=== PATIENT | male | born 1965 | race Caucasian/White ===

== ENCOUNTER 2018-11-01 05:57 | Day surgery (SDC) | payer OTHER ==
[2018-11-01] MEDS ORDERED: DIPRIVAN 200 MG/20 ML IV ONE (05:58)
[2018-11-01] MEDS ORDERED: Ketamine HCl 50 MG/ML IV ONE (05:58)
[2018-11-01] MEDS ORDERED: Lactated Ringers 1,000 ML IV SCH (06:30)
--- NOTE | 2018-11-01 08:34 | OP ---
SURGERY DATE/TIME: 11/01/2018 0741 PREOPERATIVE DIAGNOSIS: Rectal bleeding. POSTOPERATIVE DIAGNOSIS: Normal colon. PROCEDURE: Colonoscopy. SURGEON: Dr. Tiwari. ANESTHESIA: MAC. Medications given by anesthesia department. HISTORY: The patient is a 53 year-old white male patient reporting rectal bleeding over the past year off and on. The patient has never had a colon examination previously. He was suggested to have colonoscopy and appraised of the risks of the procedure including the risk of perforation, phlebitis, untoward reaction to medication, bleeding and missed lesions. The patient verbalized his understanding and desired to have the procedure performed. DESCRIPTION OF PROCEDURE: The patient was given the medications by the anesthesia department. He had continuous pulse oximetry, ECG monitoring, intermittent blood pressure monitoring and tidal CO2 monitoring during the examination. He was placed in the left lateral decubitus position. A digital rectal examination was performed and revealed normal anal sphincter tone, no masses and normal prostate. The flexible Olympus pediatric colonoscope was used to intubate the rectum. A view of the colon was developed sequentially to the cecum including a short distance into the terminal ileum. Upon insertion and withdrawal, including a retroflex view in the rectum, no mucosal lesions were encountered. The scope was removed from the patient who tolerated the procedure well and was sent back to OP recovery in good condition. The prep was noted to be good.
[2018-11-01 08:59] VITALS: BP 113/81; PULSE 69; O2SAT 98
== END 2018-11-01 09:15 | disposition home or self-care (01) ==
LOC: SDC 05:57
PROVIDERS: ATTEND Family Medicine
DX: K62.5 Hemorrhage of anus and rectum (principal)
CPT/HCPCS: J2704

== ENCOUNTER 2019-06-07 00:19 | Emergency (ER) | payer SELFPAY ==
[2019-06-07 00:34] VITALS: BP 103/63
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
[2019-06-07 01:07] VITALS: PULSE 86; O2SAT 98
== END 2019-06-07 01:07 | disposition home or self-care (01) ==
LOC: ED 00:19
DX: F10.920 Alcohol use, unspecified with intoxication, uncomplicated (principal); V89.2XXA Person injured in unspecified motor-vehicle accident, traffic, initial encounter
CPT/HCPCS: 99283

== ENCOUNTER 2020-03-21 16:41 | Emergency (ER) | payer BC ==
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
[2020-03-21 18:32] LABS: Amphetamine,Urine POSITIVE (NEGATIVE); Barbiturate,Urine NEGATIVE (NEGATIVE); Benzodiazepine,Urine NEGATIVE (NEGATIVE); Cocaine,Urine NEGATIVE (NEGATIVE); Methadone,Urine NEGATIVE (NEGATIVE); Opiate,Urine NEGATIVE (NEGATIVE); PCP,Urine NEGATIVE (NEGATIVE); THC,Urine POSITIVE (NEGATIVE)
[2020-03-22 01:48] VITALS: BP 136/88; PULSE 80; O2SAT 98
== END 2020-03-22 01:30 | disposition home or self-care (01) ==
LOC: ED 16:41
DX: R45.851 Suicidal ideations (principal); F10.129 Alcohol abuse with intoxication, unspecified; F15.90 Other stimulant use, unspecified, uncomplicated; F12.929 Cannabis use, unspecified with intoxication, unspecified
CPT/HCPCS: 36415; 80307; 99284; G0480

== ENCOUNTER 2022-08-18 08:54 | Emergency (ER) | payer BC, OTHER ==
--- NOTE | 2022-08-18 09:51 | ERPHSYRPT ---
- History of Present Illness Source: patient Exam Limitations: no limitations Patient Subjective Stated Complaint: Pt states "I have had a headache for the past two weeks and over the past two days it has been getting worse and worse." Triage Nursing Assessment: PT presented alert and oriented X 3, skin pwd. Pt presented with two halfway personel. PT presented alert and oriented X 3, skin pwd. Pt ambulates with an upright steady gait, able to speak in clear full sentenecs pt holding head and resting on cot. Physician History: 56 yo wm arrived from halfway w h/o L parietal MCDANIEL since February 2022 presents w worsening headache x 2 weeks. Pain is 6/10 but has been up to 9/10. Pt denies h/o headaches before February. Pain is throbbing, and bright lights might make it a little worse. He denies trauma/N/V/fever/stiff neck/blurry vision/auras/fever/cough. No significant caffeine use noted. No focal weakness noted. Timing/Duration: other (February 2022, worse las 2 wks) Quality: throbbing Head Pain Location: parietal (L parietal) Severity of Pain-Max: severe Severity of Pain-Current: moderate Recent Head Trauma: no recent headache/trauma, chronic headaches Modifying Factors: Improves With: exposure to light (Mildly worse w light exposure) Associated Symptoms: denies symptoms, sensitive to light Previous symptoms: same symptoms as today (Since February 2022) Allergies/Adverse Reactions: No Known Drug Allergies Allergy (Verified 03/21/20 16:43) Home Medications: Propranolol HCl [Inderal ] 10 mg PO DAILY 08/18/22 [History] Hx Tetanus, Diphtheria Vaccination/Date Given: No Hx Influenza Vaccination/Date Given: Yes (Jun 2015) Hx Pneumococcal Vaccination/Date Given: No Immunizations Up to Date: Yes Travel Risk - International Travel Have you traveled outside of the country in past 3 weeks: No - Coronavirus Screening Are you exhibiting any of the following symptoms?: Yes Symptoms: Headaches/Body Aches/Fatigue - Vaccine Status Have you recieved a Covid-19 vaccination: Yes 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[employer] - Review of Systems Constitutional: No Symptoms Eyes: No Symptoms Ears, Nose, & Throat: No Symptoms Respiratory: No Symptoms Cardiac: No Symptoms Abdominal/Gastrointestinal: No Symptoms Genitourinary Symptoms: No Symptoms Musculoskeletal: No Symptoms Skin: No Symptoms Neurological: No Symptoms, Headache Psychological: No Symptoms Endocrine: No Symptoms Hematologic/Lymphatic: No Symptoms Immunological/Allergic: No Symptoms - Past Medical History Pertinent Past Medical History: Yes Neurological History: No Pertinent History ENT History: No Pertinent History Cardiac History: No Pertinent History Respiratory History: Other Endocrine Medical History: No Pertinent History Musculoskeletal History: No Pertinent History GI Medical History: No Pertinent History, Hepatitis History: No Pertinent History Psycho-Social History: No Pertinent History Male Reproductive Disorders: No Pertinent History Other Medical History: liver problems. smoked since 13 years old - Past Surgical History Past Surgical History: Yes Neuro Surgical History: No Pertinent History Cardiac: No Pertinent History Respiratory: No Pertinent History Gastrointestinal: No Pertinent History, Hernia Repair Genitourinary: No Pertinent History Musculoskeletal: No Pertinent History Male Surgical History: No Pertinent History - Social History Smoking Status: Current every day smoker How long have you smoked: 25 years Exposure to second hand smoke: Yes Drug Use: marijuana Patient Lives Alone: Yes - Nursing Vital Signs Nursing Vital Signs: Initial Vital Signs Temperature 97.3 F 08/18/22 09:00 Pulse Rate 84 08/18/22 09:00 Respiratory Rate 20 08/18/22 09:00 Blood Pressure 125/80 08/18/22 09:00 O2 Sat by Pulse Oximetry 99 08/18/22 09:00 Pain Scale Pain Intensity 7 WNL - Physical Exam General Appearance: no apparent distress Eye Exam: PERRL/EOMI, eyes nml inspection Ears, Nose, Throat Exam: normal ENT inspection, TMs normal, pharynx normal, moist mucous membranes Neck Exam: normal inspection, non-tender, supple, full range of motion, No meningismus, No mass, No Brudzinski, No Kernig's, No carotid bruit Respiratory Exam: normal breath sounds, lungs clear, airway intact Cardiovascular Exam: regular rate/rhythm, normal heart sounds, normal peripheral pulses, capillary refill <2 sec, No murmur Gastrointestinal/Abdominal Exam: soft, normal bowel sounds Back Exam: normal inspection Extremity Exam: normal inspection, normal range of motion Mental Status Exam: alert, oriented x 3, cooperative bell staff Exam: normal hearing, normal speech, PERRL, No abnormal eye position, No abnormal gag reflex, No abnormal pupil position Coordination/Gait Exam: normal gait, normal cerebellar function, negative Romberg's sign Motor/Sensory Exam: no motor deficit, no sensory deficit, no pronator drift, negative Babinski's sign DTR Exam: bicep (R): 2+, bicep (L): 2+ Skin Exam: normal color, warm, dry Lymphatic Exam: No adenopathy SpO2 Interpretation: normal SpO2: 99 O2 Delivery: Room Air - Course Nursing assessment & vital signs reviewed: Yes - CT Exams Head CT Interpretation: Discussed w/radiologist (Left temporoparietal vasogenic edema w midline shift of 5mm/L occipital lobe intraparenchymal hemorrhage) Ordered Tests: Active Orders 24 hr Category Date Time Status HEAD WITHOUT CONTRAST [CT] Stat Exams 08/18/22 09:16 Completed Medication Summary Discontinued Medications Generic Name Dose Route Start Last Admin Trade Name Freq PRN Reason Stop Dose Admin Dexamethasone Sodium Phosphate 10 mg 08/18/22 10:02 08/18/22 10:13 Dexamethasone Sod Phosphate 10 Mg/Ml IM 08/18/22 10:03 10 mg STAT ONE Administration Dexamethasone Sodium Phosphate Confirm 08/18/22 10:12 Dexamethasone Sod Phosphate 10 Mg/Ml Administered 08/18/22 10:13 Dose 10 mg .ROUTE .STK-[facility] ONE Lab/Rad Data: Laboratory Results 08/18/22 Range/Units 09:40 Influenza Type A Ag NEGATIVE (NEGATIVE) Influenza Type B Ag NEGATIVE (NEGATIVE) RSV (PCR) NEGATIVE (Negative) SARS-CoV-2 (PCR) NEGATIVE (NEGATIVE) - Progress Progress: unchanged Progress Note: 08/18/22 10:26 Consulted neurosurgery at [place],Dr. Santso, needs transfer to hospitalist w Oncology consult Dr. Agarwal, Hospitalist, ut w transfer 10mg IM Decadron Pt refused pain meds 08/18/22 11:[address] Tamayo at [facility](Neurosurgeon), wants pt transferred to [facility]'s ER() [facility] looked at films, probable brain tumor but will not accept at present Additional history per Retirement to discharge pt Pt in stable condition wo neuro deficit when ambulance crew assumed care 08/18/22 13:22 Counseled pt/family regarding: lab results, diagnosis, need for follow-up, rad results - Departure Departure Disposition: Transfer Clinical Impression: Brain mass, Intraparenchymal hemorrhage of brain Condition: Stable Critical Care Time: Yes Critical Care Time(excluding separately billable procedures): Critical 30-74 mins Referrals: YAQUELIN CORONA [Primary Care Provider] - Follow up/PCP as directed
--- NOTE | 2022-08-18 10:01 | XRAY ---
Indication: Headache and blurred vision. Multiple contiguous images obtained through the head without contrast. Comparison: None Deep left temporoparietal lobe demonstrates large focus of vasogenic edema posteriorly with mass effect and 5 mm midline shifting worrisome for underlying mass. Left occipital lobe demonstrates subcentimeter focus of acute parenchymal hemorrhage. Fourth ventricle is midline without hydrocephalus. Bony calvarium intact. Mild mucosal thickening both maxillary and lesser degree ethmoid/sphenoid sinuses. Mastoid air cells are clear. Impression: Left temporoparietal vasogenic edema with mass effect/midline shifting worrisome for underlying mass. Left occipital lobe subcentimeter acute parenchymal hemorrhage. MRI with contrast exam may yield further information. Comment: Telephone report was given to Dr. Herrera at 0955 hrs. on August 18, 2022.
[2022-08-18] MEDS ORDERED: DECADRON 10MG INJ. IM ONE (10:02)
[2022-08-18 10:05] LABS: INFLUENZA A NEGATIVE (NEGATIVE); INFLUENZA B NEGATIVE (NEGATIVE); RESPIRATORY SYNCTIAL VIRUS NEGATIVE (Negative); SARS-CoV-2 Xpert Express NEGATIVE (NEGATIVE)
[2022-08-18] MEDS ORDERED: DECADRON 10MG INJ. ONE (10:12)
[2022-08-18 12:16] VITALS: BP 116/75; PULSE 78
[2022-08-18 13:24] VITALS: O2SAT 99
== END 2022-08-18 13:08 | disposition short-term general hospital (02) ==
LOC: ED 08:54 → EEVIPCON 08:54 → ED 13:08
DX: R93.89 Abnormal findings on diagnostic imaging of other specified body structures (principal); I61.8 Other nontraumatic intracerebral hemorrhage; R51.9 Headache, unspecified; Z79.899 Other long term (current) drug therapy; Z72.0 Tobacco use
CPT/HCPCS: 0241U; 70450; 96372; 99284; 99291; J1100

== ENCOUNTER 2022-10-18 14:13 | Emergency (ER) | payer MEDICAID ==
[2022-10-18 14:33] VITALS: O2SAT 96
--- NOTE | 2022-10-18 15:09 | XRAY ---
Indication: Pain and swelling. Discoloration. Two-dimensional sonogram and color Doppler imaging of the major venous vessels of the right leg performed. Comparison: None Extensive occluding thrombi seen throughout the right leg from the level of the common femoral to the popliteal vein. No thrombus in the remaining posterior tibial and greater saphenous veins. Impression: Extensive occluding DVT throughout the right leg as detailed.
--- NOTE | 2022-10-18 15:36 | ERPHSYRPT ---
- History of Present Illness Time Seen by Provider: 10/18/22 14:30 Source: patient Exam Limitations: no limitations Patient Subjective Stated Complaint: Swelling to RLE for approx 2 weeks. Triage Nursing Assessment: Patient ambulated back to ER; gait uneve/favoring RLE. RLE with 3+ pitting edema. Purple in color in mid lower leg; not cool to touch. Pedal pulse present but weak. Patient denies any injury to RLE. Physician History: Patient is a 57-year-old male presents emergency department for evaluation of right lower extremity swelling that has been progressive over the past 2 weeks. Patient states he has a lung mass and a brain mass. Biopsies/confirmative diagnosis pending. It is likely however that the masses are malignancies/metastasis. Patient denies a history of PE DVT. However he states that he is a smoker. He has no chest pain or shortness of breath. No nausea vomiting or diaphoresis. Symptoms are mild to moderate in intensity. Palpation to the right calf reproduces pain. No trauma. Patient voices no other complaints or concerns at this time. Portions of this note were created with voice recognition technology. There may be grammatical, spelling, punctuation or sound alike errors Timing/Duration: week(s) (2 weeks) Severity: moderate Modifying Factors: Improves With: other (Palpation to the right calf) Associated Symptoms: denies symptoms Allergies/Adverse Reactions: No Known Drug Allergies Allergy (Verified 10/18/22 14:21) Home Medications: dexAMETHasone [Dexamethasone] 2 tab PO DAILY 10/18/22 [History] Hx Tetanus, Diphtheria Vaccination/Date Given: No Hx Influenza Vaccination/Date Given: No Hx Pneumococcal Vaccination/Date Given: No Immunizations Up to Date: Yes Travel Risk - International Travel Have you traveled outside of the country in past 3 weeks: No - Coronavirus Screening Are you exhibiting any of the following symptoms?: No Close contact with a COVID-19 positive Pt in past 14-21 Days: No - Vaccine Status Have you recieved a Covid-19 vaccination: Yes 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: [employer] - Review of Systems Constitutional: No Symptoms, No Fever, No Chills Eyes: No Symptoms Ears, Nose, & Throat: No Symptoms Respiratory: No Symptoms, No Cough, No Dyspnea Cardiac: No Symptoms, No Chest Pain, No Edema, No Syncope Abdominal/Gastrointestinal: No Symptoms, No Abdominal Pain, No Nausea, No Vomiting, No Diarrhea Genitourinary Symptoms: No Symptoms, No Dysuria Musculoskeletal: No Symptoms, No Back Pain, No Neck Pain Skin: No Symptoms, No Rash Neurological: No Symptoms, No Dizziness, No Focal Weakness, No Sensory Changes Psychological: No Symptoms Endocrine: No Symptoms Hematologic/Lymphatic: No Symptoms Immunological/Allergic: No Symptoms All Other Systems: Reviewed and Negative - Past Medical History Pertinent Past Medical History: Yes Neurological History: No Pertinent History ENT History: No Pertinent History Cardiac History: No Pertinent History Respiratory History: Other Endocrine Medical History: No Pertinent History Musculoskeletal History: No Pertinent History GI Medical History: Hepatitis, Hernia History: No Pertinent History Psycho-Social History: No Pertinent History Male Reproductive Disorders: No Pertinent History Other Medical History: liver problems, dx of 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 per patient, smoked since 13 years old - Past Surgical History Past Surgical History: Yes Neuro Surgical History: No Pertinent History Cardiac: No Pertinent History Respiratory: No Pertinent History Gastrointestinal: Hernia Repair Genitourinary: No Pertinent History Musculoskeletal: No Pertinent History Male Surgical History: No Pertinent History Other Surgical History: right leg surgery from a weed eater accident - Social History Smoking Status: Current every day smoker How long have you smoked: 40 years Exposure to second hand smoke: Yes Drug Use: marijuana Patient Lives Alone: No - Nursing Vital Signs Nursing Vital Signs: Initial Vital Signs Temperature 98 F 10/18/22 14:23 Pulse Rate 90 10/18/22 14:23 Respiratory Rate 19 10/18/22 14:23 Blood Pressure 133/91 10/18/22 14:23 O2 Sat by Pulse Oximetry 96 10/18/22 14:23 Pain Scale Pain Intensity 5 - Physical Exam General Appearance: no apparent distress, alert Eye Exam: PERRL/EOMI, eyes nml inspection Ears, Nose, Throat Exam: normal ENT inspection, TMs normal, pharynx normal, moist mucous membranes Neck Exam: normal inspection, non-tender, supple, full range of motion Respiratory Exam: normal breath sounds, lungs clear, airway intact, No respiratory distress Cardiovascular Exam: regular rate/rhythm, normal heart sounds, normal peripheral pulses Gastrointestinal/Abdomen Exam: soft, normal bowel sounds, No tenderness, No mass Back Exam: normal inspection, normal range of motion, No CVA tenderness, No vertebral tenderness Extremity Exam: normal inspection, normal range of motion, pelvis stable, sandeep's sign, other (Right lower extremity swelling. Some ecchymosis. PT DP pulse palpable. Cap refill less than 2 seconds. Positive Homans' sign) Neurologic Exam: alert, oriented x 3, cooperative, normal mood/affect, nml cerebellar function, nml station & gait, sensation nml, No motor deficits Skin Exam: normal color, warm, dry, No rash Lymphatic Exam: No adenopathy SpO2 Interpretation: normal SpO2: 96 O2 Delivery: Room Air - Course Nursing assessment & vital signs reviewed: Yes - Radiology Ultrasound Exam Venous Lower Extremity Ultrasound: tele radiology report (Right lower extremity DVT from common femoral vein to popliteal vein) Ordered Tests: Active Orders 24 hr Category Date Time Status Ultrasound Unilateral Extremities [VENOUS UNILAT/ Exams 10/18/22 14:26 Completed LIMITED EXTREMIT] [US] Stat Medication Summary Discontinued Medications Generic Name Dose Route Start Last Admin Trade Name Freq PRN Reason Stop Dose Admin Enoxaparin Sodium 77 mg 10/18/22 16:18 10/18/22 16:33 Enoxaparin Sodium 80 Mg/0.8 Ml Syringe SQ 10/18/22 16:19 77 mg STAT ONE Administration Enoxaparin Sodium Confirm 10/18/22 16:33 Enoxaparin Sodium 80 Mg/0.8 Ml Syringe Administered 10/18/22 16:34 Dose 80 mg SQ .STK-MED ONE - Progress Progress: improved Progress Note: Patient is a 57-year-old male presents to our emergency department for evaluation of pain and swelling to the right lower extremity. Physical exam reveals a edematous swollen right lower extremity. Ecchymosis on the skin. PT DP pulse palpable. Cap refill less than 2 seconds. Ultrasound reveals a right lower extremity occluding DVT. Case discussed with Dr. Joy who feels patient should be transferred to [facility] on [address] to see his oncologist. Patient currently being worked up for malignancy. Case discussed with Dr. Beatty of [facility]. Transfer accepted. However no beds immediately available. Patient decided that he wanted to leave AGAINST MEDICAL ADVICE. Patient is of sound mind. Patient is appropriate to make informed and independent medical decisions. Patient understands that leaving AGAINST MEDICAL ADVICE can result in delayed diagnosis, increased risk of morbidity, mortality, short and long-term disability including . In spite of these risks, patient has decided to leave AGAINST MEDICAL ADVICE. Patient understands that he may return to our ED at any point if he or she reconsiders. Patient agrees to follow-up with his primary care doctor within 48 hours for reevaluation. Patient voices no other complaints or concerns at this time. We will release patient AGAINST MEDICAL ADVICE per their request. Patient received a dose of weight-based Lovenox in our ED per Dr. Beatty. Lovenox to be dosed every 12 hours. However patient now leaving. Patient's decision to leave AMA was discussed with Dr. Joy. We will forward prescription for Xarelto to his pharmacy. A prescription for Xarelto 15 mg twice a day for 21 days dispense 42 no refills was forwarded. Patient will start this medication tomorrow. Complexity of problem addressed is moderate. Patient's symptom is new diagnosis with uncertain prognosis. No critical care time. Complexity of data reviewed and analyzed is low. Ultrasound ordered. Ultrasound reviewed. Patient served as independent historian. Patient has no chest pain or shortness of breath. No nausea vomiting or diaphoresis. Risk of complications and or risk of morbidity/mortality of patient management is high. Patient received a blood thinner that has the risk of bleeding especially in light of patient's brain mass. These risks were discussed with patient. Accepts risks treatment. Patient discharged home AGAINST MEDICAL ADVICE. He agrees to follow-up with his primary care doctor within 48 hours for reevaluation. Significant other at bedside. Decision/plan of care made based on shared decision making. Time spent in discharge is approximately 15 minutes. Discharge diagnosis is right lower extremity deep vein thrombosis. Leg swelling. Vital stable. Portions of this note were created with voice recognition technology. There may be grammatical, spelling, punctuation or sound alike errors 10/18/22 17:[address] Louise Will see patient in: other (Case discussed with Dr. Joy who advises transfer to [facility] facility taking care of patient's lung and brain mass) Counseled pt/family regarding: diagnosis, rad results - Departure Departure Disposition: AMA Clinical Impression: DVT (deep venous thrombosis) Condition: Stable Critical Care Time: No Referrals: YAQUELIN CORONA [Primary Care Provider] - Follow up/PCP as directed Instructions: Deep Vein Thrombosis (DVT) ED Prescriptions: Rivaroxaban 10 mg Tablet [Xarelto 10 mg Tablet] 15 mg PO BID 21 Days #42 tablet
[2022-10-18] MEDS ORDERED: ENOXAPARIN SODIUM SQ ONE ×2 (16:18→16:33)
[2022-10-18 17:27] VITALS: BP 126/88; PULSE 90
== END 2022-10-18 17:44 | disposition home or self-care (01) ==
LOC: ED 14:13
DX: I82.411 Acute embolism and thrombosis of right femoral vein (principal); I82.431 Acute embolism and thrombosis of right popliteal vein; R22.41 Localized swelling, mass and lump, right lower limb; Z79.52 Long term (current) use of systemic steroids; Z79.01 Long term (current) use of anticoagulants; Z72.0 Tobacco use
CPT/HCPCS: 93971; 96372; 99282; J1650

== ENCOUNTER 2022-10-26 10:18 | Emergency (ER) | payer MEDICAID, OTHER ==
--- NOTE | 2022-10-26 11:07 | ERPHSYRPT ---
- History of Present Illness Time Seen by Provider: 10/26/22 11:02 Source: patient Exam Limitations: no limitations Patient Subjective Stated Complaint: pt here to have ct scan. he was dx with DVT left leg last week and is on blood thinners, deines sob Triage Nursing Assessment: pt alert, walked in, resp easy at rest, sob with excertion, chest clear, no edema noted Physician History: Patient is a 57-year-old male presents to our ED as a referral from his primary care doctor for a CTA of his chest. Patient was diagnosed with a DVT last week. Patient followed up with his primary care doctor today. Patient informed the primary care doctor that patient has been experiencing some shortness of breath. Patient states shortness of breath occurs only when he leans forward. RN documents he has shortness of breath with exertion. No shortness of breath at rest. Patient otherwise feels well. Patient currently on anticoagulation. Patient is here to rule out PE. Significant other at bedside. They voiced no other complaints or concerns at this time. Portions of this note were created with voice recognition technology. There may be grammatical, spelling, punctuation or sound alike errors Timing/Duration: today Severity: moderate Modifying Factors: Improves With: nothing Associated Symptoms: denies symptoms Allergies/Adverse Reactions: No Known Drug Allergies Allergy (Verified 10/26/22 10:25) Home Medications: dexAMETHasone [Dexamethasone] 2 mg PO DAILY 10/26/22 [History] Hx Tetanus, Diphtheria Vaccination/Date Given: No Hx Influenza Vaccination/Date Given: No Hx Pneumococcal Vaccination/Date Given: No Immunizations Up to Date: Yes Travel Risk - International Travel Have you traveled outside of the country in past 3 weeks: No - Coronavirus Screening Are you exhibiting any of the following symptoms?: No - Vaccine Status Have you recieved a Covid-19 vaccination: Yes [employer]: [employer] - Vaccination Dates Dates if Unknown: ? - Review of Systems Constitutional: No Symptoms, No Fever, No Chills Eyes: No Symptoms Ears, Nose, & Throat: No Symptoms Respiratory: No Symptoms, No Cough, No Dyspnea Cardiac: No Symptoms, No Chest Pain, No Edema, No Syncope Abdominal/Gastrointestinal: No Symptoms, No Abdominal Pain, No Nausea, No Vomiting, No Diarrhea Genitourinary Symptoms: No Symptoms, No Dysuria Musculoskeletal: No Symptoms, No Back Pain, No Neck Pain Skin: No Symptoms, No Rash Neurological: No Symptoms, No Dizziness, No Focal Weakness, No Sensory Changes Psychological: No Symptoms Endocrine: No Symptoms Hematologic/Lymphatic: No Symptoms Immunological/Allergic: No Symptoms All Other Systems: Reviewed and Negative - Past Medical History Pertinent Past Medical History: Yes Neurological History: No Pertinent History ENT History: No Pertinent History Cardiac History: No Pertinent History Respiratory History: Other Endocrine Medical History: No Pertinent History Musculoskeletal History: No Pertinent History GI Medical History: Hepatitis, Hernia History: No Pertinent History Psycho-Social History: No Pertinent History Male Reproductive Disorders: No Pertinent History Other Medical History: liver problems, dx of 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 per patient, smoked since 13 years old - Past Surgical History Past Surgical History: Yes Neuro Surgical History: No Pertinent History Cardiac: No Pertinent History Respiratory: No Pertinent History Gastrointestinal: Hernia Repair Genitourinary: No Pertinent History Musculoskeletal: No Pertinent History Male Surgical History: No Pertinent History Other Surgical History: right leg surgery from a weed eater accident - Social History Smoking Status: Current every day smoker How long have you smoked: 40 Exposure to second hand smoke: Yes Drug Use: marijuana Patient Lives Alone: No - Nursing Vital Signs Nursing Vital Signs: Initial Vital Signs Temperature 97.6 F 10/26/22 10:34 Pulse Rate 101 H 10/26/22 10:34 Respiratory Rate 16 10/26/22 10:34 Blood Pressure 166/102 10/26/22 10:34 O2 Sat by Pulse Oximetry 100 10/26/22 10:34 Pain Scale Pain Intensity 0 - Physical Exam General Appearance: no apparent distress, alert Eye Exam: PERRL/EOMI, eyes nml inspection Ears, Nose, Throat Exam: normal ENT inspection, TMs normal, pharynx normal, moist mucous membranes Neck Exam: normal inspection, non-tender, supple, full range of motion Respiratory Exam: normal breath sounds, lungs clear, airway intact, No respiratory distress Cardiovascular Exam: regular rate/rhythm, normal heart sounds, normal peripheral pulses Gastrointestinal/Abdomen Exam: soft, normal bowel sounds, No tenderness, No mass Back Exam: normal inspection, normal range of motion, No CVA tenderness, No vertebral tenderness Extremity Exam: normal inspection, normal range of motion, pelvis stable Neurologic Exam: alert, oriented x 3, cooperative, normal mood/affect, nml cerebellar function, nml station & gait, sensation nml, No motor deficits Skin Exam: normal color, warm, dry, No rash Lymphatic Exam: No adenopathy SpO2 Interpretation: normal SpO2: 94 O2 Delivery: Room Air - Course Nursing assessment & vital signs reviewed: Yes EKG Interpreted by Me: RATE (89) - CT Exams Chest CT Interpretation: Tele-radiologist Report (Nonoccluding pulmonary emboli in both main pulmonary artery and both lower lobe branches. No distal infarct. 1.1 cm indeterminate irregular right upper lobe noncalcified nodule. Outside comparison recommended lung emphysema hiatal hernia fatty liver right renal cyst degenerative changes) Ordered Tests: Active Orders 24 hr Category Date Time Status Paradi Operator STAT Care 10/26/22 10:52 Active EKG-ER Only STAT Care 10/26/22 10:52 Active IV Insertion STAT Care 10/26/22 10:52 Active Pulse Oximetry (ED) STAT Care 10/26/22 10:52 Active CHEST WITH CONTRAST [CT] Stat Exams 10/26/22 10:49 Completed CBC W DIFF Stat Lab 10/26/22 10:58 Completed CMP Stat Lab 10/26/22 10:58 Completed TROPONIN Q4H Lab 10/26/22 11:14 Completed TROPONIN Q4H Lab 10/26/22 15:00 Ordered TROPONIN Q4H Lab 10/26/22 19:00 Ordered Transfer Order Routine Transfer 10/26/22 Ordered Lab/Rad Data: Laboratory Result Diagrams 10/26/22 10:58 10/26/22 10:58 Laboratory Results 10/26/22 10/26/22 10/26/22 Range/Units 11:14 10:58 10:58 WBC 11.7 H (4.0-10.5) x10^3/uL RBC 4.28 (4.1-5.6) x10^6/uL Hgb 13.6 (12.5-18.0) g/dL Hct 41.5 L (42-50) % MCV 97.0 (78-100) fL MCH 31.8 (26-32) pg MCHC 32.8 (32-36) g/dL RDW 15.1 H (11.5-14.0) % Plt Count 203 (150-450) x10^3/uL MPV 8.9 (7.5-11.0) fL Gran % 86.6 H (36.0-66.0) % Immature Gran % (Auto) 2.4 H (0.00-0.4) % Nucleat RBC Rel Count 0.0 (0.00-0.1) % Eos # (Auto) 0 (0-0.5) x10^3/uL Immature Gran # (Auto) 0.28 H (0.00-0.03) x10^3u/L Absolute Lymphs (auto) 0.86 L (1.0-4.6) x10^3/uL Absolute Monos (auto) 0.39 (0.0-1.3) x10^3/uL Absolute Nucleated RBC 0.00 (0.00-0.01) x10^3u/L Lymphocytes % 7.4 L (24.0-44.0) % Monocytes % 3.3 (0.0-12.0) % Eosinophils % 0.0 (0.00-5.0) % Basophils % 0.3 (0.0-0.4) % Absolute Granulocytes 10.13 H (1.4-6.9) x10^3/uL Basophils # 0.03 (0-0.4) x10^3/uL Sodium 135 L (137-145) mmol/L Potassium 4.0 (3.5-5.1) mmol/L Chloride 103 (98-107) mmol/L Carbon Dioxide 22 (22-30) mmol/L Anion Gap 13.3 (5-15) MEQ/L BUN 16 (9-20) mg/dL Creatinine 0.58 L (0.66-1.25) mg/dL Estimated GFR > 60.0 ML/MIN Glucose 131 H (74-106) mg/dL Calcium 8.7 (8.4-10.2) mg/dL Total Bilirubin 0.50 (0.2-1.3) mg/dL AST 35 (17-59) U/L ALT 52 H (0-50) U/L Alkaline Phosphatase 77 (38-126) U/L Troponin I < 0.012 (0.000-0.034) ng/mL Serum Total Protein 6.6 (6.3-8.2) g/dL Albumin 3.7 (3.5-5.0) g/dL - Progress Progress: improved Progress Note: 57-year-old male presents to our ED as a referral from his primary care doctor for CTA chest. Patient has a known DVT. Patient has been experiencing mild shortness of breath. Patient sent here to assess for PE. CTA chest reveals nonobstructing PE. Patient adamantly states he will not stay. I discussed the case with patient's primary care doctor, Dr. Tiwari who feels patient can be discharged as long as he continues his Lovenox. Patient currently on Lovenox and does not require a refill prescription. Patient is aware of the noncalcified lung nodule. Patient has doctors in [place] that are planning a biopsy. He will inform them that he is currently on Lovenox so that they can coordinate his anticoagulation with his procedure. Patient has a known lung nodule and brain mass. Biopsy is scheduled. Patient is still a smoker. Physical exam essentially nonremarkable. Complexity of problems addressed is low. Acute uncomplicated. No critical care time. Complexity of data reviewed and analyzed is moderate. Test ordered. Testing re viewed. EKG reviewed independently by Dr. Foley. Patient management discussion occurred between Dr. Og Tiwari. Patient will be discharged home. He agrees to continue his coagulation on an outpatient basis. Significant other at bedside. They voiced no other complaints or concerns at this time. Risk of complication and or morbidity/mortality of patient management is low. No prescriptions prescribed. Plan of care determined based on shared decision making model. Vital stable. 10/26/22 13:21 Discuss[address] with DrOwen: Louise Counseled pt/family regarding: lab results, diagnosis, rad results - Departure Departure Disposition: Home Clinical Impression: Pulmonary emboli, Noncalcified lung nodule, Shortness of breath Condition: Stable Critical Care Time: No Referrals: YAQUELIN TIWARI [Primary Care Provider] - Follow up/PCP as directed Additional Instructions: Discharge/Care Plan MIKE SOLIZ was seen on 10/26/22 in the Emergency Room. The patient was counseled regarding Diagnosis,Lab results, Imaging studies, need for follow up and when to return to the Emergency Room. Prescriptions given: Discharge Note I have spoken with the patient and/or caregivers. I have explained the patient's condition, diagnosis and treatment plan based on the information available to me at this time. I have answered the patient's and/or caregiver's questions and addressed any concerns. The patient and/or caregivers have as good understanding of the patient's diagnosis, condition and treatment plan as can be expected at this point. The vital signs have been stable. The patient's condition is stable and appropriate for discharge from the emergency department. The patient will pursue further outpatient evaluation with the primary care physician or other designated or consulting physician as outlined in the discharge instructions. The patient and/or caregivers are agreeable to this plan of care and follow-up instructions have been explained in detail. The patient and/or caregivers have received these instruction. The patient/and or caregivers are aware that any significant change in condition or worsening of symptoms should prompt an immediate return to this or the closest emergency department or call 911.
[2022-10-26 11:22] LABS: ALBUMIN 3.7 g/dL (3.5-5.0); ALKALINE PHOSPHATASE 77 U/L (38-126); ANION GAP 13.3 MEQ/L (5-15); BLOOD UREA NITROGEN 16 mg/dL (9-20); CHLORIDE 103 mmol/L (98-107); Calcium 8.7 mg/dL (8.4-10.2); Carbon Dioxide 22 mmol/L (22-30); Creatinine 1 0.58 mg/dL (0.66-1.25); EST GLOMERULAR FILTRATION RATE > 60.0 ML/MIN; Glucose 131 mg/dL (74-106); SGOT/AST 35 U/L (17-59); SGPT/ALT 52 U/L (0-50); SODIUM 135 mmol/L (137-145); Total Protein 6.6 g/dL (6.3-8.2)
[2022-10-26 11:31] LABS: Absolute Neutrophil Ct (ANC) 10.13 x10^3/uL (1.4-6.9); BASOPHIL % 0.3 % (0.0-0.4); Basophil (Absolute #) 0.03 x10^3/uL (0-0.4); Eosinophil (Absolute #) 0 x10^3/uL (0-0.5); Hematocrit 41.5 % (42-50); Hemoglobin 13.6 g/dL (12.5-18.0); IMMATURE GRAN # 0.28 x10^3u/L (0.00-0.03); IMMATURE GRAN % 2.4 % (0.00-0.4); Lymphocyte (Absolute #) 0.86 x10^3/uL (1.0-4.6); Lymphocytes % 7.4 % (24.0-44.0); Mean Corpuscular Hemoglobin 31.8 pg (26-32); Mean Corpuscular Hgb Concent. 32.8 g/dL (32-36); Mean Platelet Volume 8.9 fL (7.5-11.0); Monocyte (Absolute #) 0.39 x10^3/uL (0.0-1.3); Monocytes % 3.3 % (0.0-12.0); Neutrophil % 86.6 % (36.0-66.0); Platelet Count 203 x10^3/uL (150-450); Red Blood Count 4.28 x10^6/uL (4.1-5.6); Red Cell Distribution Width 15.1 % (11.5-14.0); White Blood Count 11.7 x10^3/uL (4.0-10.5)
--- NOTE | 2022-10-26 12:51 | XRAY ---
Indication: Pain. DVT. Multiple contiguous axial images obtained through the chest using 80 cc Isovue 370 contrast and PE protocol. Comparison: None Good opacification of the pulmonary arteries including lobar and segmental branches. Nonoccluding pulmonary emboli seen in both main pulmonary arteries further extending into both lower lobes branches. Heart not enlarged. Aorta is normal in course and caliber. No pathologic mediastinal/hilar lymphadenopathy. Small hiatal hernia. Lungs demonstrates moderate diffuse pulmonary emphysema and small right middle lobe calcified granuloma. 1.1 cm peripheral right upper lobe indeterminate irregular noncalcified nodule. Minimal medial right middle and lingula subsegmental atelectasis/scarring. No infiltrate or effusion. Bony thorax intact with mild degenerative changes throughout the spine. Limited upper abdomen demonstrates fatty liver and 1 cm right upper renal cortical cyst. Impression: 1. Nonoccluding pulmonary emboli in both main pulmonary arteries and both lower lobes branches. No distal infarct. 2. 1.1 cm indeterminant irregular right upper lobe noncalcified nodule. Outside comparison studies recommended if available. PET/CT may yield further information. 3. Chronic findings including pulmonary emphysema, hiatal hernia, fatty liver, right renal cyst, degenerative spondylosis, and old granulomatous disease.
[2022-10-26 13:44] VITALS: BP 147/97; PULSE 97; O2SAT 97
== END 2022-10-26 13:44 | disposition home or self-care (01) ==
LOC: ED 10:18
DX: I26.99 Other pulmonary embolism without acute cor pulmonale (principal); R91.1 Solitary pulmonary nodule; R06.02 Shortness of breath; Z79.01 Long term (current) use of anticoagulants; Z79.52 Long term (current) use of systemic steroids; Z72.0 Tobacco use
CPT/HCPCS: 36000; 36415; 71260; 80053; 84484; 85025; 93005; 93041; 94760; 99284

== ENCOUNTER 2023-10-22 13:36 | Emergency (ER) | payer OTHER ==
[2023-10-22 13:50] VITALS: TEMP 98.2
[2023-10-22] MEDS ORDERED: Zofran 4 MG/2 ML VIAL ONE ×2 (14:08→14:16)
[2023-10-22] MEDS ORDERED: Sodium Chloride 0.9% 1000 ML 1,000 ML ONE ×2 (14:09→15:28)
[2023-10-22] MEDS: Zofran 4 MG/2 ML VIAL IV ONE (14:14)
[2023-10-22] MEDS: Sodium Chloride 0.9% 1000 ML 1,000 ML IV STA ×2 (14:14→15:30)
[2023-10-22 14:17] LABS: Absolute Neutrophil Ct (ANC) 5.21 x10^3/uL (1.4-6.9); BASOPHIL % 1.1 % (0.0-0.4); Eosinophil % 2.4 % (0.00-5.0); Eosinophil (Absolute #) 0.21 x10^3/uL (0-0.5); Hematocrit 36.3 % (42-50); Hemoglobin 12.4 g/dL (12.5-18.0); IMMATURE GRAN # 0.09 x10^3u/L (0.00-0.03); Lymphocyte (Absolute #) 2.14 x10^3/uL (1.0-4.6); Lymphocytes % 24.4 % (24.0-44.0); Mean Cell Volume 93.1 fL (78-100); Mean Corpuscular Hemoglobin 31.8 pg (26-32); Mean Corpuscular Hgb Concent. 34.2 g/dL (32-36); Mean Platelet Volume 11.2 fL (7.5-11.0); Monocyte (Absolute #) 1.03 x10^3/uL (0.0-1.3); Monocytes % 11.7 % (0.0-12.0); Neutrophil % 59.4 % (36.0-66.0); Platelet Count 253 x10^3/uL (150-450); Red Cell Distribution Width 15.9 % (11.5-14.0); White Blood Count 8.8 x10^3/uL (4.0-10.5)
--- NOTE | 2023-10-22 14:17 | ERPHSYRPT ---
- History of Present Illness Time Seen by Provider: 10/22/23 13:43 Source: patient, family Exam Limitations: no limitations Patient Subjective Stated Complaint: Pt has been getting weak for the past 3 weeks but since Sunday he has been extremely weak and hasn't recovered, pt has brain and lung cancer and his cancer doctor s office told them to come to the ER thinking that he was dehydrated, pt fell at home this morning Triage Nursing Assessment: Pt brought to the ER by his , hypotensive, tachycardic, denies any new pain, weak, thirsty, denies N&V, pt unsure where he hit his head during a fall this morning, hasn't eaten in approx 5 days, has little urination, no difficulty breathing, no chest pain, states that he has gotten confused in the last couple of days Physician History: Patient has brain cancer of some type. They are unsure. States the patient has been more weak the past 3 weeks. However, since approximately 5 days ago patient has been much more weak. He has not gotten out of bed. He has no fevers, chills, other generalized malaise. However he does feel very dehydrated has not been eating and drinking very much. They state that patient also has lung cancer. Patient's regular physician is out of [facility]. However, they were unable to be seen today. Patient arrives to the ER with his . He is hypotensive, tachycardic. Decreased overall urine output. More confused over the past few days. Allergies/Adverse Reactions: No Known Drug Allergies Allergy (Verified 10/22/23 13:50) Home Medications: Hydrocodone/Acetaminophen [Hydrocodone-Acetamin 10-325 mg] 1 each PO Q6H 10/22/23 [History] Levothyroxine Sodium 75 Mcg [Synthroid 75 Mcg] 75 mcg PO DAILY 10/22/23 [History] Hx Tetanus, Diphtheria Vaccination/Date Given: No Hx Influenza Vaccination/Date Given: No Hx Pneumococcal Vaccination/Date Given: No Travel Risk - International Travel Have you traveled outside of the country in past 3 weeks: No - Coronavirus Screening Are you exhibiting any of the following symptoms?: No Close contact with a COVID-19 positive Pt in past 14-21 Days: No - Vaccine Status Have you recieved a Covid-19 vaccination: Yes 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 - Past Medical History Pertinent Past Medical History: Yes Neurological History: No Pertinent History ENT History: No Pertinent History Cardiac History: No Pertinent History Respiratory History: Other Endocrine Medical History: No Pertinent History Musculoskeletal History: No Pertinent History GI Medical History: Hepatitis, Hernia History: No Pertinent History Psycho-Social History: No Pertinent History Male Reproductive Disorders: No Pertinent History Other Medical History: liver problems, dx of 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 per patient, smoked since 13 years old, brain and lung cancer - Past Surgical History Past Surgical History: Yes Neuro Surgical History: No Pertinent History Cardiac: No Pertinent History Respiratory: No Pertinent History Gastrointestinal: Hernia Repair Genitourinary: No Pertinent History Musculoskeletal: No Pertinent History Male Surgical History: No Pertinent History Other Surgical History: right leg surgery from a weed eater accident, brain surgery to remove mass, lung biopsies - Social History Smoking Status: Current every day smoker How long have you smoked: 40 Exposure to second hand smoke: Yes Drug Use: none Patient Lives Alone: No - Nursing Vital Signs Nursing Vital Signs: Initial Vital Signs Temperature 98.2 F 10/22/23 13:40 Pulse Rate 108 H 10/22/23 13:40 Respiratory Rate 17 10/22/23 13:40 Blood Pressure 97/66 10/22/23 13:40 O2 Sat by Pulse Oximetry 98 10/22/23 13:40 Pain Scale Pain Intensity 0 - Physical Exam SpO2 Interpretation: normal SpO2: 98 Comments: 10/22/23 14:16 Review of Systems Constitutional: Negative for fever. HENT: Negative for congestion. Respiratory: Negative for shortness of breath. Cardiovascular: Negative for chest pain. Gastrointestinal: Negative for abdominal pain. Genitourinary: Negative for dysuria. Musculoskeletal: Negative for back pain. Skin: Negative for rash. Neurological: Negative for headaches. Psychiatric/Behavioral: Negative for behavioral problems. All other systems reviewed and are negative. Physical Exam Vitals signs and nursing note reviewed. Constitutional: Appearance: Patient is well-developed. HENT: Head: Normocephalic and atraumatic. Eyes: Conjunctiva/sclera: Conjunctivae normal. Neck: Musculoskeletal: Normal range of motion. Trachea: No tracheal deviation. Cardiovascular: Rate and Rhythm: Normal rate. Pulmonary: Effort: Pulmonary effort is normal. No respiratory distress. Abdominal: Palpations: Abdomen is soft. Musculoskeletal: General: No deformity. Skin: General: Skin is warm and dry. Neurological/ Psychiatric: Mental Status: Mental status, behavior, interaction with environment is appropriate for patient's age and condition of brain tumor - Course Nursing assessment & vital signs reviewed: Yes EKG Interpreted by Me: Sinus Rhythm Ordered Tests: Active Orders 24 hr Category Date Time Status EKG-ER Only STAT Care 10/22/23 14:02 Active IV Insertion STAT Care 10/22/23 14:02 Active CHEST 1 VIEW (PORTABLE) Stat Exams 10/22/23 14:02 Completed CBC W DIFF Stat Lab 10/22/23 13:15 Completed CMP Stat Lab 10/22/23 13:15 Completed LIPASE Stat Lab 10/22/23 13:15 Completed TROPONIN Q4H Lab 10/22/23 14:15 Completed TROPONIN Q4H Lab 10/22/23 18:15 Ordered TROPONIN Q4H Lab 10/22/23 22:15 Ordered UA W/RFX UR CULTURE Stat Lab 10/22/23 14:02 Ordered Medication Summary Generic Name Dose Route Start Last Admin Trade Name Freq PRN Reason Stop Dose Admin Sodium Chloride 1,000 mls @ 999 mls/hr 10/22/23 15:27 10/22/23 15:30 Sodium Chloride 0.9% 1000 Ml IV 10/22/23 16:27 999 mls/hr .Q1H1M STA Administration Discontinued Medications Generic Name Dose Route Start Last Admin Trade Name Freq PRN Reason Stop Dose Admin Hydrocodone Bitart/Acetaminophen 1 tablet 10/22/23 14:42 10/22/23 15:02 Hydrocodone/Acetamin 10-325 Mg Tablet PO 10/22/23 14:43 1 tablet ONCE ONE Administration Hydrocodone Bitart/Acetaminophen Confirm 10/22/23 15:00 Hydrocodone/Acetamin 10-325 Mg Tablet Administered 10/22/23 15:01 Dose 1 tablet .ROUTE .STK-MED ONE Sodium Chloride 1,000 mls @ 999 mls/hr 10/22/23 14:02 10/22/23 15:32 Sodium Chloride 0.9% 1000 Ml IV 10/22/23 15:02 Infused .Q1H1M STA Infusion Sodium Chloride Confirm 10/22/23 14:09 Sodium Chloride 0.9% 1000 Ml Administered 10/22/23 14:10 Dose 1,000 mls @ ud .ROUTE .STK-MED ONE Sodium Chloride Confirm 10/22/23 15:28 Sodium Chloride 0.9% 1000 Ml Administered 10/22/23 15:29 Dose 1,000 mls @ ud .ROUTE .STK-MED ONE Ondansetron HCl 8 mg 10/22/23 14:03 10/22/23 14:14 Ondansetron Hcl 4 Mg/2 Ml Vial IV 10/22/23 14:04 8 mg STAT ONE Administration Ondansetron HCl Confirm 10/22/23 14:08 Ondansetron Hcl 4 Mg/2 Ml Vial Administered 10/22/23 14:09 Dose 4 mg .ROUTE .STK-MED ONE Ondansetron HCl Confirm 10/22/23 14:16 Ondansetron Hcl 4 Mg/2 Ml Vial Administered 10/22/23 14:17 Dose 4 mg .ROUTE .STK-MED ONE Lab/Rad Data: Laboratory Result Diagrams 10/22/23 13:15 10/22/23 13:15 Laboratory Results 10/22/23 10/22/23 10/22/23 Range/Units 14:15 13:15 13:15 WBC (4.0-10.5) x10^3/uL RBC (4.1-5.6) x10^6/uL Hgb (12.5-18.0) g/dL Hct (42-50) % MCV (78-100) fL MCH (26-32) pg MCHC (32-36) g/dL RDW (11.5-14.0) % Plt Count (150-450) x10^3/uL MPV (7.5-11.0) fL Gran % (36.0-66.0) % Immature Gran % (Auto) (0.00-0.4) % Nucleat RBC Rel Count (0.00-0.1) % Eos # (Auto) (0-0.5) x10^3/uL Immature Gran # (Auto) (0.00-0.03) x10^3u/L Absolute Lymphs (auto) (1.0-4.6) x10^3/uL Absolute Monos (auto) (0.0-1.3) x10^3/uL Absolute Nucleated RBC (0.00-0.01) x10^3u/L Lymphocytes % (24.0-44.0) % Monocytes % (0.0-12.0) % Eosinophils % (0.00-5.0) % Basophils % (0.0-0.4) % Absolute Granulocytes (1.4-6.9) x10^3/uL Basophils # (0-0.4) x10^3/uL Sodium 129 L (135-145) mmol/L Potassium 4.2 (3.5-5.1) mmol/L Chloride 96 L (98-107) mmol/L Carbon Dioxide 21 L (22-30) mmol/L Anion Gap 15.9 H (5-15) MEQ/L BUN 12 (9-20) mg/dL Creatinine 0.87 (0.66-1.25) mg/dL Estimated GFR 98.8 ML/MIN Glucose 111 H (74-106) mg/dL Calcium 8.4 (8.4-10.2) mg/dL Total Bilirubin 1.00 (0.2-1.3) mg/dL AST 54 (17-59) U/L ALT 27 (0-50) U/L Alkaline Phosphatase 148 H (38-126) U/L Troponin I < 0.012 (0.000-0.034) ng/mL Serum Total Protein 6.6 (6.3-8.2) g/dL Albumin 3.3 L (3.5-5.0) g/dL Lipase 121 (23-300) U/L Influenza Type A Ag NEGATIVE (NEGATIVE) Influenza Type B Ag NEGATIVE (NEGATIVE) RSV (PCR) NEGATIVE (NEGATIVE) SARS-CoV-2 (PCR) NEGATIVE (NEGATIVE) 10/22/23 Range/Units 13:15 WBC 8.8 (4.0-10.5) x10^3/uL RBC 3.90 L (4.1-5.6) x10^6/uL Hgb 12.4 L (12.5-18.0) g/dL Hct 36.3 L (42-50) % MCV 93.1 (78-100) fL MCH 31.8 (26-32) pg MCHC 34.2 (32-36) g/dL RDW 15.9 H (11.5-14.0) % Plt Count 253 (150-450) x10^3/uL MPV 11.2 H (7.5-11.0) fL Gran % 59.4 (36.0-66.0) % Immature Gran % (Auto) 1.0 H (0.00-0.4) % Nucleat RBC Rel Count 0.0 (0.00-0.1) % Eos # (Auto) 0.21 (0-0.5) x10^3/uL Immature Gran # (Auto) 0.09 H (0.00-0.03) x10^3u/L Absolute Lymphs (auto) 2.14 (1.0-4.6) x10^3/uL Absolute Monos (auto) 1.03 (0.0-1.3) x10^3/uL Absolute Nucleated RBC 0.00 (0.00-0.01) x10^3u/L Lymphocytes % 24.4 (24.0-44.0) % Monocytes % 11.7 (0.0-12.0) % Eosinophils % 2.4 (0.00-5.0) % Basophils % 1.1 (0.0-0.4) % Absolute Granulocytes 5.21 (1.4-6.9) x10^3/uL Basophils # 0.10 (0-0.4) x10^3/uL Sodium (135-145) mmol/L Potassium (3.5-5.1) mmol/L Chloride (98-107) mmol/L Carbon Dioxide (22-30) mmol/L Anion Gap (5-15) MEQ/L BUN (9-20) mg/dL Creatinine (0.66-1.25) mg/dL Estimated GFR ML/MIN Glucose (74-106) mg/dL Calcium (8.4-10.2) mg/dL Total Bilirubin (0.2-1.3) mg/dL AST (17-59) U/L ALT (0-50) U/L Alkaline Phosphatase (38-126) U/L Troponin I (0.000-0.034) ng/mL Serum Total Protein (6.3-8.2) g/dL Albumin (3.5-5.0) g/dL Lipase (23-300) U/L Influenza Type A Ag (NEGATIVE) Influenza Type B Ag (NEGATIVE) RSV (PCR) (NEGATIVE) SARS-CoV-2 (PCR) (NEGATIVE) - Progress Progress: improved Progress Note: 10/22/23 14:16 Differential diagnosis includes infection, pneumonia, worsening confusion, electrolyte abnormality, other heart issue, PNA, STEMI, NSTEMI, other infection, musculoskeletal pain, pneumothorax - We'll obtain basic labs, fluids, EKG, troponin, chest x-ray - EKG shows no ST changes - my read - O2 saturations consistently greater than 95%. - CXR shows no pneumonia, pneumothorax - my read - Plan for fluids and nausea medication 10/22/23 16:19 Patient given 2 L of fluid here. He does feel improved with these. Patient's blood pressure and tachycardia have almost completely resolved. Patient did have a few low blood pressure readings still. His states that this is near his baseline. Electrolytes/blood work reflect his chronic disease, hyponatremia, anemia. Patient looks much better after 2 L. He sits up in bed he is more conversive. I did explain the risks and benefits of being hospitalized versus going home with the patient and his . Patient certainly could be hospitalized today for his dehydration, electrolyte abnormalities, continued close monitoring. However, patient does have known lung and brain cancer. They do not want to be spending more time in the hospital then they have to. They also have hospice coming in 2 days. Today is Sunday, hospice is coming Sunday and they have follow-up with their oncologist on . Therefore, they would like to try to go home today. I did explain the risks and benefits of going home with the and the patient. I explained the morbidity, mortality that certainly could occur with these electrolyte abnormalities and his cancer. They do state their understanding and would still like to go home and try it. They stated that they can come back here at any point in time should symptoms change. Given all of this we will discharge patient home today. They will have a low threshold to return. Return here sooner for any new or changing symptoms. Counseled pt/family regarding: lab results, diagnosis, need for follow-up, rad results - Departure Departure Disposition: Home Clinical Impression: Dehydration, Chronic disease, Hyponatremia, Anemia Condition: Stable Critical Care Time: No Referrals: YAQUELIN CORONA [Primary Care Provider] - Follow up/PCP as directed
[2023-10-22 14:25] LABS: ALBUMIN 3.3 g/dL (3.5-5.0); ANION GAP 15.9 MEQ/L (5-15); Calcium 8.4 mg/dL (8.4-10.2); Creatinine 1 0.87 mg/dL (0.66-1.25); EST GLOMERULAR FILTRATION RATE 98.8 ML/MIN; Potassium 4.2 mmol/L (3.5-5.1); Total Protein 6.6 g/dL (6.3-8.2)
--- NOTE | 2023-10-22 14:33 | XRAY ---
Indication: Pneumonia. Comparison: None Portable apical lordotic chest hyperinflated and clear with incidental small right base calcified granuloma. Heart not enlarged with incidental small hiatal hernia. Bony thorax intact with mild degenerative changes. Impression: Nonacute hyperinflated chest with chronic features.
[2023-10-22 14:54] LABS: INFLUENZA A NEGATIVE (NEGATIVE); INFLUENZA B NEGATIVE (NEGATIVE); RESPIRATORY SYNCTIAL VIRUS NEGATIVE (NEGATIVE); SARS-CoV-2 Xpert Express NEGATIVE (NEGATIVE)
[2023-10-22] MEDS ORDERED: NORCO 10-325 MG ONE (15:00)
[2023-10-22] MEDS: NORCO 10-325 MG PO ONE (15:02)
[2023-10-22 15:44] VITALS: RESP 12
[2023-10-22 16:21] VITALS: BP 92/74; PULSE 87
[2023-10-22 16:23] VITALS: O2SAT 98
== END 2023-10-22 16:34 | disposition home or self-care (01) ==
LOC: ED 13:36
DX: E86.0 Dehydration (principal); E87.1 Hypo-osmolality and hyponatremia; D64.9 Anemia, unspecified; C71.9 Malignant neoplasm of brain, unspecified; C34.90 Malignant neoplasm of unspecified part of unspecified bronchus or lung; R53.1 Weakness; R41.0 Disorientation, unspecified; Z79.891 Long term (current) use of opiate analgesic; Z79.899 Other long term (current) drug therapy; Z72.0 Tobacco use
CPT/HCPCS: 0241U; 36415; 71045; 80053; 83690; 84484; 85025; 93005; 96360; 96374; 99284; J2405; A9270-GY